=== PATIENT | male | born 1965 | race Caucasian/White ===

== ENCOUNTER 2019-05-06 10:29 | Day surgery (SDC) | payer BC ==
[~2019-05-06 10:29] MED LIST: Metoclopramide 10 MG/2 ML SDV IV PRN
[2019-05-06] MEDS: Sodium Chloride 0.9% 1,000 ML IV SCH (11:20)
[2019-05-06] MEDS ORDERED: Propofol 1,000 MG/100 ML SDV ONE (12:34)
[2019-05-06 14:12] VITALS: BP 124/80
--- NOTE | 2019-05-06 15:13 | OR ---
DATE OF OPERATION: 05/06/2019 PREOPERATIVE DIAGNOSIS: Surveillance colonoscopy. POSTOPERATIVE DIAGNOSIS: Surveillance colonoscopy. PROCEDURE: Colonoscopy. ANESTHESIA: MAC. ESTIMATED BLOOD LOSS: None. COMPLICATIONS: None. INDICATION FOR THE PROCEDURE: The patient is a 53-year-old male with a strong family history of colorectal cancer. Dad of colon cancer in his 50s. Dad's brother was also found to have colon cancer. This is the patient's fourth colonoscopy, last one 4 years ago was normal. Over the past year, the patient has had several episodes of bright red blood per rectum. He is here today for colonoscopy for family history as well as bright red blood per rectum. DESCRIPTION OF PROCEDURE: Informed consent was obtained with the patient. The patient was taken to the operating room and placed on the table in the left lateral decubitus position. Monitored anesthesia care was administered. Digital rectal exam performed and was normal. Colonoscope was then advanced through the anus and directed toward the cecum. Cecum was reached and identified by appendiceal orifice and ileocecal valve. Colonoscope was then slowly withdrawn. No masses. No polyps. No areas of ischemia or inflammation identified. He did have a few small diverticula in the sigmoid colon. Otherwise, retroflexion performed in the rectum showing some grade 2 internal hemorrhoids as well. The colonoscope was then withdrawn. FINDINGS: Sigmoid diverticulosis as well as internal hemorrhoids, likely the source of his bleeding. RECOMMENDATIONS: Would recommend high-fiber diet and plenty of water. Would also recommend repeat surveillance colonoscopy in 5 years due to family history. SAIDA /[id number]
== END 2019-05-06 14:15 | disposition home or self-care (01) ==
LOC: LB.SDS 10:29
PROVIDERS: ATTEND Surgery
DX: K57.31 Diverticulosis of large intestine without perforation or abscess with bleeding (principal); K64.1 Second degree hemorrhoids; E78.00 Pure hypercholesterolemia, unspecified; J45.909 Unspecified asthma, uncomplicated; G47.30 Sleep apnea, unspecified; Z80.0 Family history of malignant neoplasm of digestive organs; Z79.899 Other long term (current) drug therapy
CPT/HCPCS: G0121; J2704; J7030

== ENCOUNTER 2024-07-12 09:02 | Day surgery (SDC) | payer OTHER ==
[2024-07-12] MEDS: Sodium Chloride 0.9% 1,000 ML IV SCH (09:28)
[2024-07-12 10:23] VITALS: BP 133/81; PULSE 86
== END 2024-07-12 11:12 | disposition home or self-care (01) ==
LOC: LB.SDS 09:02
PROVIDERS: ATTEND Surgery
DX: Z12.11 Encounter for screening for malignant neoplasm of colon (principal); K57.30 Diverticulosis of large intestine without perforation or abscess without bleeding; Z80.0 Family history of malignant neoplasm of digestive organs
CPT/HCPCS: 45378; J2704; J7030